=== PATIENT | female | born 1985 | race American Indian/Alaskan Native ===

== ENCOUNTER 2017-06-12 15:31 | Emergency (ER) | payer SELFPAY ==
--- NOTE | 2017-06-12 18:02 | Emergency Department Report ---
Chief Complaint: Dizziness Stated Complaint: DIZZY Time Seen by Provider: 06/12/17 17:58 - HPI History of Present Illness: PT c/o dizziness. + nausea PT states the symptoms worsened today, onset yesterday - ROS Review of Systems: + headache - feels like previous migraine + dizziness + nausea lmp - 05-08-17 - Exam Physical Exam: PT looks well, non toxic. GCS 15 steady gait in triage MSE screening note: Focused history and physical exam performed. Due to findings the following was ordered: labs ED Disposition for MSE Condition: Stable
[2017-06-12 18:51] LABS: Basophils % (Auto) 0.4 % (0.0-1.8); Hematocrit 39.6 % (30.3-42.9); Hemoglobin 13.1 gm/dl (10.1-14.3); Mean Corpuscular HGB Conc 33 % (30-34); Mean Corpuscular Volume 77 fl (79-97); Platelet Count 184 K/mm3 (140-440); Red Blood Count 5.12 M/mm3 (3.65-5.03); Red Cell Distribution Width 14.3 % (13.2-15.2); White Blood Count 6.8 K/mm3 (4.5-11.0)
[2017-06-12 18:56] LABS: Mean Corpuscular Hemoglobin 26 pg (28-32)
[2017-06-12 19:09] LABS: Alanine Aminotransferase 16 units/L (7-56); Albumin/Globulin Ratio 1.5 %; Alkaline Phosphatase 56 units/L (35-129); Anion Gap 17 mmol/L; Blood Urea Nitrogen 9 mg/dL (7-17); Calcium 9.8 mg/dL (8.4-10.2); Carbon Dioxide 29 mmol/L (22-30); Chloride 98.9 mmol/L (98-107); Glucose 94 mg/dL (65-100); Potassium 3.4 mmol/L (3.6-5.0); Sodium 141 mmol/L (137-145); Total Protein 8.3 g/dL (6.3-8.2)
[2017-06-12] MEDS ORDERED: NACL 0.9% 1000 ML 1,000 ML IV ONE (21:05)
[2017-06-12] MEDS ORDERED: REGLAN IV ONE (21:05)
[2017-06-12 21:06] VITALS: BP 151/94
[2017-06-12] MEDS ORDERED: BENADRYL IV PRN (21:06)
[2017-06-12 21:55] LABS: Bilirubin,Urine NEG (Negative); Blood,Urine NEG (Negative); Ketones,Urine NEG (Negative); Leukocyte Esterase,Urine NEG (Negative); Nitrite,Urine NEG (Negative); Protein,Urine <15 mg/dL mg/dL (Negative); Urobilinogen,Urine < 2.0 mg/dL (<2.0); WBC,Urine < 1.0 /HPF (0.0-6.0)
--- NOTE | 2017-06-13 00:33 | Emergency Department Report ---
- General Chief complaint: Dizziness Stated complaint: DIZZY Time Seen by Provider: 06/12/17 17:58 Source: patient Mode of arrival: Ambulatory Limitations: No Limitations - History of Present Illness Initial comments: It is a 31-year-old female past medical history who presents with headache and feelings of lightheadedness. She states that symptoms have been going on for last 2 weeks. She states that she's been working a lot and she has not been getting enough water. She states that she's had headaches like these before in the past. The headache is not sudden in onset is gradual. It is located in the temporal region is a 7 out of 10 but doesn't radiate it is a sharp type of pain it is constant and nothing makes the pain better or worse. She states that she usually goes to the ER to get IV fluids for this type of headache. Patient also states that she gets lightheaded when she gets headaches like these. Severity scale (0 -10): 10 - Related Data Allergies Allergy/AdvReac Type Severity Reaction Status Date / Time No Known Allergies Allergy Verified 06/12/17 18:04 ED Review of Systems ROS: Stated complaint: DIZZY Other details as noted in HPI Constitutional: weakness. denies: chills, fever Eyes: denies: eye pain, eye discharge, vision change ENT: denies: ear pain, throat pain Respiratory: denies: cough, shortness of breath, wheezing Cardiovascular: denies: chest pain, palpitations Endocrine: no symptoms reported Gastrointestinal: denies: abdominal pain, nausea, diarrhea Genitourinary: denies: urgency, dysuria, discharge Musculoskeletal: denies: back pain, joint swelling, arthralgia Skin: denies: rash, lesions Neurological: headache, weakness Psychiatric: denies: anxiety, depression Hematological/Lymphatic: denies: easy bleeding, easy bruising ED Past Medical Hx - Past Medical History Previous Medical History?: Yes Hx Headaches / Migraines: Yes - Surgical History Past Surgical History?: No - Social History Smoking Status: Never Smoker Substance Use Type: None ED Physical Exam - General Limitations: No Limitations General appearance: alert, in no apparent distress - Head Head exam: Present: atraumatic, normocephalic - Eye Eye exam: Present: normal appearance - ENT ENT exam: Present: mucous membranes dry - Neck Neck exam: Present: normal inspection - Respiratory Respiratory exam: Present: normal lung sounds bilaterally. Absent: respiratory distress - Cardiovascular Cardiovascular Exam: Present: regular rate, normal rhythm. Absent: systolic murmur, diastolic murmur, rubs, gallop - GI/Abdominal GI/Abdominal exam: Present: soft, normal bowel sounds - Extremities Exam Extremities exam: Present: normal inspection - Back Exam Back exam: Present: normal inspection - Neurological Exam Neurological exam: Present: alert, oriented X3 - Psychiatric Psychiatric exam: Present: normal affect, normal mood - Skin Skin exam: Present: warm, dry, intact, normal color. Absent: rash ED Course Vital Signs 06/12/17 06/12/17 17:59 20:30 Temperature 98.5 F Pulse Rate 62 57 L Respiratory 16 18 Rate Blood Pressure 143/95 Blood Pressure 151/94 [Left] O2 Sat by Pulse 100 99 Oximetry - Reevaluation(s) Reevaluation #1: 06/12/17 22:37 Patient is feeling better she states her headache is gone and she feels a lot better. We'll send patient home she agrees with plan. ED Medical Decision Making - Lab Data Result diagrams: 06/12/17 18:27 06/12/17 18:27 Laboratory Results - last 24 hr 06/12/17 06/12/17 06/12/17 18:27 18:27 18:27 WBC 6.8 RBC 5.12 H Hgb 13.1 Hct 39.6 MCV 77 L MCH 26 L MCHC 33 RDW 14.3 Plt Count 184 Lymph % (Auto) 34.3 [place] % (Auto) 4.8 Eos % (Auto) 2.0 Baso % (Auto) 0.4 Lymph # 2.3 [place] # 0.3 Eos # 0.1 Baso # 0.0 Seg Neutrophils % 58.5 Seg Neutrophils # 4.0 Sodium 141 Potassium 3.4 L Chloride 98.9 Carbon Dioxide 29 Anion Gap 17 BUN 9 Creatinine 0.5 L Estimated GFR > 60 BUN/Creatinine Ratio 18.00 Glucose 94 Calcium 9.8 Total Bilirubin 1.60 H AST 15 ALT 16 Alkaline Phosphatase 56 Total Protein 8.3 H Albumin 5.0 Albumin/Globulin Ratio 1.5 HCG, Qual Negative Urine Color Urine Turbidity Urine pH Ur Specific [place] Urine Protein Urine Glucose (UA) Urine Ketones Urine Blood Urine Nitrite Urine Bilirubin Urine Urobilinogen Ur Leukocyte Esterase Urine WBC (Auto) Urine RBC (Auto) U Epithel Cells (Auto) 06/12/17 21:07 WBC RBC Hgb Hct MCV MCH MCHC RDW Plt Count Lymph % (Auto) [place] % (Auto) Eos % (Auto) Baso % (Auto) Lymph # [place] # Eos # Baso # Seg Neutrophils % Seg Neutrophils # Sodium Potassium Chloride Carbon Dioxide Anion Gap BUN Creatinine Estimated GFR BUN/Creatinine Ratio Glucose Calcium Total Bilirubin AST ALT Alkaline Phosphatase Total Protein Albumin Albumin/Globulin Ratio HCG, Qual Urine Color Straw Urine Turbidity Clear Urine pH 8.0 H Ur Specific [place] 1.012 Urine Protein <15 mg/dl Urine Glucose (UA) Neg Urine Ketones Neg Urine Blood Neg Urine Nitrite Neg Urine Bilirubin Neg Urine Urobilinogen < 2.0 Ur Leukocyte Esterase Neg Urine WBC (Auto) < 1.0 Urine RBC (Auto) 2.0 U Epithel Cells (Auto) 1.0 - Medical Decision Making Medical diagnosis: Tension headache Differential medical diagnosis: Urinary tract infection, , dehydration , hypokalemia, migraine headache Due to patient with clinical signs and symptoms and the fact that she's had headaches like this before in the past. Patient does not need CT imaging of her head. His laboratory findings and urinalysis show no metabolic abnormality nor infection. She has no neurological deficits. Discussed risk for radiation and both me and the patient have made shared decision making that she does not need a CT of her head. Will treat patient with IV Reglan and IV Benadryl due to patient's headache not improving with [id number] medications. Also due to patient being dehydrated we'll give patient IV hydration. Critical Care Time: No Critical care attestation.: If time is entered above; I have spent that time in minutes in the direct care of this critically ill patient, excluding procedure time. ED Disposition Clinical Impression: Dehydration, Tension headache Disposition: DC-01 TO HOME OR SELFCARE Is pt being admited?: No Does the pt Need Aspirin: No Condition: Stable Instructions: Dehydration (ED), Tension Headache (ED) Referrals: PRIMARY CARE, [Primary Care Provider] - 3-5 Days Time of Disposition: 00:34
== END 2017-06-13 00:56 | disposition home or self-care (01) ==
LOC: ED 15:31
DX: E86.0 Dehydration (principal); G44.209 Tension-type headache, unspecified, not intractable; G43.909 Migraine, unspecified, not intractable, without status migrainosus
CPT/HCPCS: 36415; 80053; 81001; 84703; 85025; 96361; 96374; 96375; 99283; J1200; J2765; J7030

== ENCOUNTER 2017-08-18 23:40 | Emergency (ER) | payer OTHER ==
[2017-08-19 01:38] LABS: Alanine Aminotransferase 10 units/L (7-56); Albumin 4.9 g/dL (3.9-5); Albumin/Globulin Ratio 1.5 %; Alkaline Phosphatase 60 units/L (35-129); Anion Gap 17 mmol/L; BUN/Creatinine Ratio 23; Blood Urea Nitrogen 14 mg/dL (7-17); Calcium 9.6 mg/dL (8.4-10.2); Carbon Dioxide 26 mmol/L (22-30); Chloride 103.9 mmol/L (98-107); Glucose 75 mg/dL (65-100); Lipase 21 units/L (13-60); Potassium 3.6 mmol/L (3.6-5.0); Sodium 143 mmol/L (137-145); Total Protein 8.2 g/dL (6.3-8.2)
[2017-08-19 01:40] LABS: Basophils % (Auto) 0.4 % (0.0-1.8); Eosinophils % (Auto) 0.9 % (0.0-4.3); Hematocrit 38.5 % (30.3-42.9); Hemoglobin 13.1 gm/dl (10.1-14.3); Mean Corpuscular HGB Conc 34 % (30-34); Mean Corpuscular Hemoglobin 26 pg (28-32); Mean Corpuscular Volume 76 fl (79-97); Platelet Count 173 K/mm3 (140-440); Red Blood Count 5.04 M/mm3 (3.65-5.03)
[2017-08-19] MEDS ORDERED: ZOFRAN ODT PO ONE (08:24)
[2017-08-19 09:00] VITALS: BP 124/74
[2017-08-19 09:05] LABS: Bacteria,Urine 1+ /HPF (Negative); Bilirubin,Urine NEG (Negative); Blood,Urine NEG (Negative); Ketones,Urine 80 mg/dL (Negative); Leukocyte Esterase,Urine NEG (Negative); Mucus,Urine 1+ /HPF; Nitrite,Urine NEG (Negative); Protein,Urine <15 mg/dL mg/dL (Negative); Urobilinogen,Urine < 2.0 mg/dL (<2.0)
--- NOTE | 2017-08-19 10:22 | Emergency Department Report ---
ED Abdominal Pain HPI - General Chief Complaint: Abdominal Pain Stated Complaint: ABD PAIN Time Seen by Provider: 08/19/17 08:23 Source: patient Mode of arrival: Ambulatory Limitations: No Limitations - History of Present Illness MD Complaint: abdominal pain Location: diffuse Radiation: none Migration to: no migration Severity: moderate Quality: sharp Consistency: intermittent Improves With: nothing Worsens With: nothing Context: sick contacts (here w 4 fam members) Associated Symptoms: nausea, vomiting, diarrhea. denies: fever, chills, constipation, dysuria, hematemesis, hematochezia, melena, hematuria, anorexia, syncope - Related Data Previous Rx's Medication Instructions Recorded Last Taken Type Ondansetron [Zofran TAB] 4 mg PO Q8HR PRN #10 tablet 08/19/17 Unknown Rx Allergies Allergy/AdvReac Type Severity Reaction Status Date / Time No Known Allergies Allergy Verified 06/12/17 18:04 ED Review of Systems ROS: Stated complaint: ABD PAIN Other details as noted in HPI Comment: All other systems reviewed and negative Constitutional: no symptoms reported, see HPI. denies: chills, diaphoresis, fever, malaise Eyes: as per HPI. denies: eye pain ENT: as per HPI. denies: ear pain, throat pain Respiratory: no symptoms reported, see HPI, cough. denies: orthopnea Cardiovascular: as per HPI. denies: chest pain, palpitations, dyspnea on exertion, orthopnea Endocrine: no symptoms reported, see HPI. denies: excessive sweating, flushing , intolerance to cold, intolerance to heat Gastrointestinal: as per HPI, abdominal pain, nausea, vomiting, diarrhea. denies: constipation, hematemesis, melena, hematochezia Genitourinary: as per HPI. denies: urgency, dysuria, frequency, hematuria, discharge, abnormal menses, dyspareunia Musculoskeletal: as per HPI. denies: back pain Skin: as per HPI. denies: rash, lesions Neurological: as per HPI. denies: headache, weakness Psychiatric: as per HPI. denies: anxiety, depression Hematological/Lymphatic: as per HPI. denies: easy bleeding ED Past Medical Hx - Past Medical History Previous Medical History?: Yes Hx Headaches / Migraines: Yes - Surgical History Past Surgical History?: No - Social History Smoking Status: Never Smoker Substance Use Type: None - Medications Home Medications: Home Medications Medication Instructions Recorded Confirmed Last Taken Type Ondansetron [Zofran TAB] 4 mg PO Q8HR PRN #10 tablet 08/19/17 Unknown Rx ED Physical Exam - General Limitations: No Limitations General appearance: alert, in no apparent distress - Head Head exam: Present: atraumatic - Eye Eye exam: Present: normal appearance. Absent: PERRL, EOMI Pupils: Present: normal accommodation. Absent: irregular - ENT ENT exam: Present: normal exam, normal orophraynx, mucous membranes moist - Neck Neck exam: Present: normal inspection. Absent: tenderness - Respiratory Respiratory exam: Present: normal lung sounds bilaterally - Cardiovascular Cardiovascular Exam: Present: regular rate - GI/Abdominal GI/Abdominal exam: Present: soft, normal bowel sounds. Absent: distended, tenderness, guarding, rebound, rigid, diminished bowel sounds, hyperactive bowel sounds, hypoactive bowel sounds, organomegaly, mass, bruit, pulsatile mass , hernia - Rectal Rectal exam: Present: deferred - Extremities Exam Extremities exam: Present: normal inspection, full ROM. Absent: tenderness - Back Exam Back exam: Present: normal inspection, full ROM. Absent: tenderness, CVA tenderness (R), CVA tenderness (L), muscle spasm, paraspinal tenderness, vertebral tenderness - Neurological Exam Neurological exam: Present: alert, oriented X3, CN II-XII intact, normal gait - Psychiatric Psychiatric exam: Present: normal affect, normal mood - Skin Skin exam: Present: warm, dry, intact ED Course Vital Signs 08/19/17 08/19/17 00:49 08:59 Temperature 98.4 F Pulse Rate 81 65 Respiratory 20 18 Rate Blood Pressure 164/95 Blood Pressure 124/74 [Right] O2 Sat by Pulse 98 100 Oximetry - Reevaluation(s) Reevaluation #1: 08/19/17 10:55 to er today w her and 3 kids all w illness mom co abd pain n/v/d but none here while in er taking po ambulating well tending to kids vss no tachy no fever non ill appearing abd exam wnl. no tenderness on exam she states it just hurts lying in stretcher w laughing discussed u/a and her bili given po fluids will fu if not better monday ED Medical Decision Making - Lab Data Result diagrams: 08/19/17 01:01 08/19/17 01:01 Critical care attestation.: If time is entered above; I have spent that time in minutes in the direct care of this critically ill patient, excluding procedure time. ED Disposition Clinical Impression: Gastroenteritis Disposition: TO HOME OR SELFCARE Is pt being admited?: No Does the pt Need Aspirin: No Condition: Stable Instructions: Gastroenteritis (ED), Abdominal Pain (ED) Additional Instructions: rest hydrate well fluids fluids fluids no alcohol or spicy food med as ordered if you are not feeling better Monday see PCP have him recheck your lab work then Prescriptions: Ondansetron [Zofran TAB] 4 mg PO Q8HR PRN #10 tablet PRN Reason: Vomiting Referrals: PRIMARY CARE, [Primary Care Provider] - 3-5 Days WILLI ROSEN MD [Staff Physician] - 3-5 Days Time of Disposition: 10:54
== END 2017-08-19 12:23 | disposition home or self-care (01) ==
LOC: ED 23:40
DX: K52.9 Noninfective gastroenteritis and colitis, unspecified (principal); G43.909 Migraine, unspecified, not intractable, without status migrainosus
CPT/HCPCS: 36415; 80053; 81001; 83690; 84703; 85025; 99283; Q0162

== ENCOUNTER 2017-12-24 05:09 | Emergency (ER) | payer OTHER ==
[2017-12-24 07:08] LABS: Basophils % (Auto) 0.4 % (0.0-1.8); Eosinophils # (Auto) 0.2 K/mm3 (0.0-0.4); Eosinophils % (Auto) 2.4 % (0.0-4.3); Hematocrit 36.9 % (30.3-42.9); Hemoglobin 12.1 gm/dl (10.1-14.3); Lymphocytes # (Auto) 2.3 K/mm3 (1.2-5.4); Lymphocytes % (Auto) 35.8 % (13.4-35.0); Mean Corpuscular HGB Conc 33 % (30-34); Mean Corpuscular Volume 77 fl (79-97); Monocytes # (Auto) 0.5 K/mm3 (0.0-0.8); Monocytes % (Auto) 7.5 % (0.0-7.3); Platelet Count 221 K/mm3 (140-440); Red Blood Count 4.78 M/mm3 (3.65-5.03); Red Cell Distribution Width 13.4 % (13.2-15.2)
[2017-12-24 07:09] LABS: Mean Corpuscular Hemoglobin 25 pg (28-32)
[2017-12-24 07:27] LABS: Alanine Aminotransferase 10 units/L (7-56); Albumin 4.2 g/dL (3.9-5); BUN/Creatinine Ratio 15; Blood Urea Nitrogen 9 mg/dL (7-17); Calcium 9.1 mg/dL (8.4-10.2); Hemolysis Index 3
--- NOTE | 2017-12-24 11:32 | Emergency Department Report ---
Pediatric NVD - HPI Chief Complaint: Nausea/Vomiting/Diarrhea Stated Complaint: NAUSEA, VOMITING, DIARRHEA Time Seen by Provider: 12/24/17 09:56 ED Review of Systems ROS: Stated complaint: NAUSEA, VOMITING, DIARRHEA Other details as noted in HPI Pediatric N/V/D - Exam General: Vital signs noted. No distress. Alert and acting appropriately. Neurologic: Musculoskeletal: ED Course Vital Signs 12/24/17 05:30 Temperature 97.9 F Pulse Rate 64 Respiratory 20 Rate Blood Pressure 127/71 O2 Sat by Pulse 98 Oximetry ED Medical Decision Making - Lab Data Result diagrams: 12/24/17 06:04 12/24/17 06:04 - Medical Decision Making A/P: Food poisoning, viral gastroenteritis 1-patient tolerating by mouth fluid and food without difficulty, vital signs stable, afebrile 2-Zofran when necessary, Pepto-Bismol when necessary 3-all primary care doctor 4- Critical care attestation.: If time is entered above; I have spent that time in minutes in the direct care of this critically ill patient, excluding procedure time. ED Disposition Condition: Stable Referrals: PRIMARY CARE, [Primary Care Provider] - 3-5 Days
--- NOTE | 2017-12-24 11:49 | Emergency Department Report ---
Vomiting/Diarrhea - [facility] Chief Complaint: Nausea/Vomiting/Diarrhea Stated Complaint: NAUSEA, VOMITING, DIARRHEA Time Seen by Provider: 12/24/17 09:56 Duration: 2 Days Severity: mild Symptoms: Yes Watery Diarrhea, Yes Able to Tolerate Fluids, Yes Recent Unusual Foods, Yes Family w/ Similar Symptoms, Yes Contacts w/ Similar Symptoms, No Bloody diarrhea, No Fever, No Recent Untreated Water, No Recent use of Antibiotics, No Rash, No Hematuria, No Recent URI Symptoms ED Review of Systems ROS: Stated complaint: NAUSEA, VOMITING, DIARRHEA Other details as noted in HPI Constitutional: denies: chills, fever Eyes: denies: eye pain, eye discharge, vision change ENT: denies: ear pain, throat pain Respiratory: denies: cough, shortness of breath, wheezing Cardiovascular: denies: chest pain, palpitations Endocrine: no symptoms reported Gastrointestinal: vomiting, diarrhea. denies: nausea Genitourinary: denies: urgency, dysuria, discharge Musculoskeletal: denies: back pain, joint swelling, arthralgia Skin: denies: rash, lesions Neurological: denies: headache, weakness, paresthesias Psychiatric: denies: anxiety, depression Hematological/Lymphatic: denies: easy bleeding, easy bruising ED Past Medical Hx - Past Medical History Previous Medical History?: No Hx Headaches / Migraines: Yes - Social History Smoking Status: Never Smoker - Medications Home Medications: Home Medications Medication Instructions Recorded Confirmed Last Taken Type Ondansetron [Zofran TAB] 4 mg PO Q8HR PRN #10 tablet 08/19/17 Unknown Rx Bismuth Subsalicylate 10 ml PO QID PRN #1 bottle 12/24/17 Unknown Rx [Pepto-Bismol] Famotidine [Pepcid] 20 mg PO BID PRN #30 tablet 12/24/17 Unknown Rx Ondansetron [Zofran Odt] 4 mg PO Q8H PRN #10 tab.rapdis 12/24/17 Unknown Rx Vomiting Diarrhea Exam - Exam General: Vital signs noted. No distress. Alert and acting appropriately. HEENT: Yes Moist Mucous Membranes, No Pharyngeal Erythema, No Pharyngeal Exudates, No Rhinorrhea, No Conjuctival Injection, No Frontal Tenderness, No Maxillary Tenderness Neck: No Adenopathy, No Rigidity Lungs: Yes Clear Lung Sounds (lungs clear to auscultation), Yes Good Air Exchange, No Wheezes, No Stridor, No Cough, No Nasal Flaring, No Retractions, No Use of Accessory Muscles Heart exam: Regular: Yes, Murmur: No, Tachycardia: No Abdomen: Tenderness: No (abdomen soft and nontender), Peritoneal Signs: No, Distention: No, Hyperactive Bowel sounds: No Skin exam: Rash: No, Edema: No, Normal turgor: Yes Neurologic: Alert and oriented, no deficits. Musculoskeletal: Unremarkable. ED Course Vital Signs 12/24/17 05:30 Temperature 97.9 F Pulse Rate 64 Respiratory 20 Rate Blood Pressure 127/71 O2 Sat by Pulse 98 Oximetry ED Medical Decision Making - Lab Data Result diagrams: 12/24/17 06:04 12/24/17 06:04 - Medical Decision Making A/P: Gastroenteritis 1-patient tolerating by mouth fluid and food, labs unremarkable, vital signs stable 2-Zofran, Pepto-Bismol when necessary 3-follow-up with primary care Critical care attestation.: If time is entered above; I have spent that time in minutes in the direct care of this critically ill patient, excluding procedure time. ED Disposition Clinical Impression: Gastroenteritis Food poisoning Qualifiers: Encounter type: initial encounter Injury intent: undetermined intent Qualified Code(s): T62.94XA - Toxic effect of unspecified noxious substance eaten as food , undetermined, initial encounter Disposition: - TO HOME OR SELFCARE Is pt being admited?: No Does the pt Need Aspirin: No Condition: Stable Instructions: Gastroenteritis (ED), Food Poisoning (ED) Prescriptions: Bismuth Subsalicylate [Pepto-Bismol] 10 ml PO QID PRN #1 bottle PRN Reason: Indigestion Famotidine [Pepcid] 20 mg PO BID PRN #30 tablet PRN Reason: Indigestion Ondansetron [Zofran Odt] 4 mg PO Q8H PRN #10 tab.rapdis PRN Reason: Nausea Referrals: [facility] [Outside] - 3-5 Days [facility] [Outside] - 3-5 Days Forms: Work/School Release Form(ED) Time of Disposition: 11:46
[2017-12-24 12:35] VITALS: BP 118/72
== END 2017-12-24 12:57 | disposition home or self-care (01) ==
LOC: ED 05:09
DX: K52.9 Noninfective gastroenteritis and colitis, unspecified (principal); T62.91XA Toxic effect of unspecified noxious substance eaten as food, accidental (unintentional), initial encounter; G43.909 Migraine, unspecified, not intractable, without status migrainosus; Y92.89 Other specified places as the place of occurrence of the external cause
CPT/HCPCS: 36415; 80053; 84703; 85025; 99283

== ENCOUNTER 2018-07-05 09:21 | Emergency (ER) | payer OTHER ==
[2018-07-05 10:09] VITALS: BP 132/69
[2018-07-05 10:32] LABS: HCG Qualitative,Urine Negative (Negative)
[2018-07-05 10:40] LABS: Bilirubin,Urine NEG (Negative); Blood,Urine NEG (Negative); Color,Urine Yellow (Yellow)
[2018-07-05] MEDS ORDERED: TORADOL IV ONE (11:10)
[2018-07-05] MEDS ORDERED: BENADRYL IV ONE (11:10)
[2018-07-05] MEDS ORDERED: NACL 0.9% 1000 ML 1,000 ML IV ONE (11:10)
[2018-07-05] MEDS ORDERED: REGLAN PO ONE (11:10)
[2018-07-05 11:47] LABS: Basophils % (Auto) 0.4 % (0.0-1.8); Eosinophils # (Auto) 0.1 K/mm3 (0.0-0.4); Eosinophils % (Auto) 1.3 % (0.0-4.3); Hematocrit 39.2 % (30.3-42.9); Hemoglobin 13.1 gm/dl (10.1-14.3); Lymphocytes # (Auto) 1.9 K/mm3 (1.2-5.4); Lymphocytes % (Auto) 27.8 % (13.4-35.0); Mean Corpuscular HGB Conc 33 % (30-34); Mean Corpuscular Hemoglobin 26 pg (28-32); Mean Corpuscular Volume 78 fl (79-97); Monocytes # (Auto) 0.4 K/mm3 (0.0-0.8); Monocytes % (Auto) 5.3 % (0.0-7.3); Platelet Count 182 K/mm3 (140-440); Red Blood Count 5.02 M/mm3 (3.65-5.03); Red Cell Distribution Width 14.5 % (13.2-15.2)
[2018-07-05 12:06] LABS: Alanine Aminotransferase 7 units/L (7-56); Albumin 4.7 g/dL (3.9-5); BUN/Creatinine Ratio 22; Bilirubin,Direct < 0.2 mg/dL (0-0.2); Blood Urea Nitrogen 13 mg/dL (7-17); Calcium 9.7 mg/dL (8.4-10.2); Hemolysis Index 7; Lipase 29 units/L (13-60)
--- NOTE | 2018-07-05 12:28 | Emergency Department Report ---
ED Female HPI - General Chief complaint: Abdominal Pain Stated complaint: N&V Time Seen by Provider: 07/05/18 10:53 Source: patient Mode of arrival: Ambulatory Limitations: No Limitations - History of Present Illness Initial comments: This is a 32-year-old female nontoxic, well nourished in appearance, no acute signs of distress presents to the ED with c/o of pelvic pain, vaginal discharge , and intermittent headaches 2 days. Patient denies any nausea or vomiting. Patient describes pelvic pain as cramping and aching with level of 3/10 diffuse. Patient describes headache as diffuse with level of 3 out of 10. Patient denies thunderclap headache. Patient denies any radiation of pain. Patient denies any head trauma. Patient denies any visual changes. Patient denies worse headache. Patient stated that darkness makes headache better and bright lights make the headache worse. Patient denies chest pain, short of breath, fever, chills, stiff neck, numbness or tingling. Patient denies any diarrhea or constipation. Patient denies any vaginal bleeding. Patient denies any recent travels. Patient denies any allergies or PMH. Patient stated she is not concerned about STD but wants to be tested. MD Complaint: vaginal discharge, pelvic pain, other (headache) -: days(s) (2) Radiation: non-radiating Severity: mild Severity scale (0 -10): 3 Quality: cramping, aching Consistency: intermittent Improves with: none Worsens with: none Are you Now?: No Associated Symptoms: vaginal discharge, headaches. denies: vaginal bleeding, abdominal pain, nausea/vomiting, fever/chills, loss of appetite, hematuria, rash , seizure, shortness of breath, syncope, weakness - Related Data Previous Rx's Medication Instructions Recorded Last Taken Type Ondansetron [Zofran TAB] 4 mg PO Q8HR PRN #10 tablet 08/19/17 Unknown Rx Bismuth Subsalicylate 10 ml PO QID PRN #1 bottle 12/24/17 Unknown Rx [Pepto-Bismol] Famotidine [Pepcid] 20 mg PO BID PRN #30 tablet 12/24/17 Unknown Rx Ondansetron [Zofran Odt] 4 mg PO Q8H PRN #10 tab.rapdis 12/24/17 Unknown Rx Doxycycline [Vibramycin CAP] 100 mg PO Q12HR #14 capsule 07/05/18 Unknown Rx Fluconazole [Diflucan] 150 mg PO ONCE #1 tablet 07/05/18 Unknown Rx metroNIDAZOLE [Flagyl] 500 mg PO Q12HR #14 tab 07/05/18 Unknown Rx Allergies Allergy/AdvReac Type Severity Reaction Status Date / Time No Known Allergies Allergy Verified 06/12/17 18:04 ED Review of Systems ROS: Stated complaint: N&V Other details as noted in HPI Constitutional: denies: chills, fever Eyes: denies: eye pain, eye discharge, vision change ENT: denies: ear pain, throat pain Respiratory: denies: cough, shortness of breath, wheezing Cardiovascular: denies: chest pain, palpitations Endocrine: no symptoms reported Gastrointestinal: abdominal pain (pelvic pain). denies: nausea, vomiting, diarrhea Genitourinary: discharge. denies: urgency, dysuria, frequency Musculoskeletal: denies: back pain, joint swelling, arthralgia Skin: denies: rash, lesions Neurological: headache. denies: weakness, paresthesias Psychiatric: denies: anxiety, depression Hematological/Lymphatic: denies: easy bleeding, easy bruising ED Past Medical Hx - Past Medical History Previous Medical History?: Yes Hx Headaches / Migraines: Yes - Surgical History Past Surgical History?: Yes Additional Surgical History: x 3 - Social History Smoking Status: Never Smoker Substance Use Type: None - Medications Home Medications: Home Medications Medication Instructions Recorded Confirmed Last Taken Type Ondansetron [Zofran TAB] 4 mg PO Q8HR PRN #10 tablet 08/19/17 Unknown Rx Bismuth Subsalicylate 10 ml PO QID PRN #1 bottle 12/24/17 Unknown Rx [Pepto-Bismol] Famotidine [Pepcid] 20 mg PO BID PRN #30 tablet 12/24/17 Unknown Rx Ondansetron [Zofran Odt] 4 mg PO Q8H PRN #10 tab.rapdis 12/24/17 Unknown Rx Doxycycline [Vibramycin CAP] 100 mg PO Q12HR #14 capsule 07/05/18 Unknown Rx Fluconazole [Diflucan] 150 mg PO ONCE #1 tablet 07/05/18 Unknown Rx metroNIDAZOLE [Flagyl] 500 mg PO Q12HR #14 tab 07/05/18 Unknown Rx ED Physical Exam - General Limitations: No Limitations General appearance: alert, in no apparent distress - Head Head exam: Present: atraumatic, normocephalic - Eye Eye exam: Present: normal appearance, PERRL, EOMI Pupils: Present: normal accommodation - ENT ENT exam: Present: normal exam, mucous membranes moist - Neck Neck exam: Present: normal inspection, full ROM. Absent: tenderness, meningismus, lymphadenopathy - Respiratory Respiratory exam: Present: normal lung sounds bilaterally. Absent: respiratory distress, wheezes, rales, rhonchi, stridor, chest wall tenderness, accessory muscle use, decreased breath sounds, prolonged expiratory - Cardiovascular Cardiovascular Exam: Present: regular rate, normal rhythm, normal heart sounds. Absent: bradycardia, tachycardia, irregular rhythm, systolic murmur, diastolic murmur, rubs, gallop - GI/Abdominal GI/Abdominal exam: Present: soft, normal bowel sounds. Absent: distended, tenderness, guarding, rebound, rigid, diminished bowel sounds, hyperactive bowel sounds, hypoactive bowel sounds, mass, bruit, pulsatile mass, hernia - Expanded GI/Abdominal Exam Expanded GI/Abdominal exam: Absent: psoas sign, obturator sign, heel tap sign, Downing's sign, Rovsing's sign, tenderness at Mcburney's Point, ascites - Rectal Rectal exam: Present: deferred - External exam: Present: normal external exam, other (roll cutter Barbara rehab therapist present during exam). Absent: erythema, lesions, lacerations, ecchymosis, bleeding Speculum exam: Present: normal speculum exam, cervical discharge (white with no foul odor), other (roll cutter Barbara rehab therapist present during exam). Absent: erythema, vaginal discharge, vaginal bleeding, foreign body, tissue, laceration Bi-manual exam: Present: normal bi-manual exam, other (roll cutter Barbara rehab therapist present during exam). Absent: cervical motion tendernes, adnexal tenderness, adnexal mass, uterine enlargement, uterine tenderness - Extremities Exam Extremities exam: Present: normal inspection, full ROM, normal capillary refill. Absent: tenderness, pedal edema, joint swelling, calf tenderness - Back Exam Back exam: Present: normal inspection, full ROM. Absent: tenderness, CVA tenderness (R), CVA tenderness (L), muscle spasm, paraspinal tenderness, vertebral tenderness, rash noted - Neurological Exam Neurological exam: Present: alert, oriented X3, CN II-XII intact, normal gait - Expanded Neurological Exam Expanded Patient oriented to: Present: person, place, time Cranial nerves: EOM's Intact: Normal, Gag Reflex: Normal, Facial Sensation: Normal Cerebellar function: Finger to Nose: Normal Upper motor neuron: Pronator Drift: Normal, Sensory Extinction: Normal Sensory exam: Upper Extremity Light Touch: Normal, Upper Extremity Pin Prick: Normal, Upper Extremity Temperature: Normal, UE 2 Point Discrimination: Normal, Lower Extremity Light Touch: Normal, Lower Extremity Pin Prick: Normal, Lower Extremity Temperature: Normal, LE 2 Point Discrimination: Normal Motor strength exam: RUE: 5, LUE: 5, RLE: 5, LLE: 5 Best Eye Response (Shailesh): (4) open spontaneously Best Motor Response (Maupin): (6) obeys commands Best Verbal Response (Maupin): (5) oriented Maupin Total: 15 - Psychiatric Psychiatric exam: Present: normal affect, normal mood - Skin Skin exam: Present: warm, dry, intact, normal color. Absent: rash ED Course Vital Signs 07/05/18 07/05/18 07/05/18 10:06 11:34 11:37 Temperature 98.6 F Pulse Rate 66 Respiratory 14 18 18 Rate Blood Pressure 132/69 O2 Sat by Pulse 100 98 Oximetry 07/05/18 12:07 Temperature Pulse Rate Respiratory 18 Rate Blood Pressure O2 Sat by Pulse Oximetry - Reevaluation(s) Reevaluation #1: 07/05/18 12:30 Patient is speaking in full sentences with no signs of distress noted. - Consultations Consultation #1: 07/05/18 13:20 Dr. Eli ([facility]) was consulted about patient history, physical exam, and labs/US report and stated patient can follow-up as outpatient and to provide antibiotics at discharge. ED Medical Decision Making - Lab Data Result diagrams: 07/05/18 11:36 07/05/18 11:36 - Medical Decision Making This is a 32-year-old female that presents with pelvic pain, headache, IUD displaced, Trichomonas, yeast infection and BV. Patient is stable and was examined by me. There is no upper abdominal tenderness. Negative signs of symptoms of appendicitis. Labs obtained. UA obtained. US/CT with contrast of pelvic obtained and dictated by the radiologist. Patient is notified of the report with no questions noted by the patient. Patient was consulted with Dr. Eli from [facility] and stated to give antibiotics and follow-up. Vital signs are stable prior to discharge. Patient receded 1L normal saline, Toradol, Benadyl, and Reglan and stated headache has subsided and resovled. Patient is neurological stable. Patient also received Rocephine and Azithroymin in the ED. A by mouth challenge has been obtained and patient tolerated well with no nausea vomiting. Patient was instructed to return and symptoms 3 days for gonorrhea and chlamydia results. Patient was also instructed to Follow-up with a primary care doctor in 3-5 days or if symptoms worsen and continue return to emergency room as soon as possible. At time of discharge, the patient does not seem toxic or ill in appearance. No acute signs of distress noted. Patient agrees to discharge treatment plan of care. No further questions noted by the patient. Critical care attestation.: If time is entered above; I have spent that time in minutes in the direct care of this critically ill patient, excluding procedure time. ED Disposition Clinical Impression: Bacterial vaginosis, Trichomonas contact, Vaginal candidiasis, Pelvic pain IUD strings lost Qualifiers: Encounter type: initial encounter Qualified Code(s): T83.32XA - Displacement of intrauterine contraceptive device, initial encounter Disposition: DC-01 TO HOME OR SELFCARE Is pt being admited?: No Does the pt Need Aspirin: No Condition: Stable Instructions: Bacterial Vaginosis (ED), Metronidazole (By mouth), Trichomoniasis (ED), Vulvovaginal Candidiasis (ED) Additional Instructions: Follow-up with a ADHESIVE BANDAGE MACHINE OPERATOR doctor in 3-5 days or if symptoms worsen and continue return to emergency room as soon as possible. Do not consume any alcohol while taking antibiotics. Prescriptions: Doxycycline [Vibramycin CAP] 100 mg PO Q12HR #14 capsule Fluconazole [Diflucan] 150 mg PO ONCE #1 tablet metroNIDAZOLE [Flagyl] 500 mg PO Q12HR #14 tab Referrals: PRIMARY CARE, [Primary Care Provider] - 3-5 Days KETAN ELI MD [Staff Physician] - 3-5 Days [facility] [Outside] - 3-5 Days [facility] [Outside] - 3-5 Days [facility] [Provider Group] - 3-5 Days Forms: Work/School Release Form(ED)
--- NOTE | 2018-07-05 12:39 | Ultrasound Report ---
ULTRASOUND PELVIC COMPLETE ULTRASOUND TRANSVAGINAL HISTORY: Pelvic pain. COMPARISON: None. TECHNIQUE: Transabdominal and transvaginal ultrasound with color doppler interrogation. FINDINGS: Uterus: The uterus is anteverted. The uterus measures 9 x 5 x 4 cm. No uterine fibroid disease is identified. The images are slightly limited but there appears to be an intrauterine device which is not within the endometrial canal. The IUD appears to be within the myometrium of the right lateral and lower uterine wall. Consider further evaluation with CT. Endometrium: 5 mm. No obvious abnormality. Right ovary: Normal. Left ovary: Normal. No pelvic fluid or mass is identified. Normal color doppler interrogation. IMPRESSION: There appears to be an abnormal position of the intrauterine device as outlined above. Uterine perforation is difficult to exclude. See above.
--- NOTE | 2018-07-05 15:05 | Cat Scan Report ---
CT ABDOMEN PELVIS WITH CONTRAST: HISTORY: Pelvic pain. COMPARISON: Pelvic ultrasound performed same day. TECHNIQUE: Helical CT in 1.25mm intervals following IV contrast. Sagittal and coronal reconstructions. FINDINGS: Lung bases: Normal. Liver: Normal. Biliary system: Normal. Pancreas: Normal. Spleen: Normal. Kidneys/ureters/bladder: The right kidney is severely atrophic measuring only a few centimeters in length. The left kidney is normal. The collecting systems and bladder are unremarkable. Adrenal glands: Normal. Aorta: Normal. Intestines: Unremarkable given no oral contrast was administered. Appendix: Normal. Pelvic viscera: The uterus and adnexa are unremarkable. The intrauterine device appears to have an abnormal position on CT as well. One of the limits of the IUD appears to project into the lower right lateral wall of the uterus. Please correlate with the images. A moderate left ovarian vein varicosity is also noted. Ascites: None. Adenopathy: None. Musculoskeletal: Normal. IMPRESSION: Abnormal position of the IUD as described above. Please correlate with the images and the patient.
[2018-07-05] MEDS ORDERED: ZITHROMAX PO ONE (15:40)
[2018-07-05] MEDS ORDERED: ROCEPHIN/NS 1 GM/50 ML 1 GM/50 ML BAG IV ONE (15:40)
== END 2018-07-05 16:25 | disposition home or self-care (01) ==
LOC: ED 09:21
DX: T83.32XA Displacement of intrauterine contraceptive device, initial encounter (principal); N76.0 Acute vaginitis; A59.01 Trichomonal vulvovaginitis; B37.3 Candidiasis of vulva and vagina; G43.909 Migraine, unspecified, not intractable, without status migrainosus; Y83.8 Other surgical procedures as the cause of abnormal reaction of the patient, or of later complication, without mention of misadventure at the time of the procedure; Y92.89 Other specified places as the place of occurrence of the external cause
CPT/HCPCS: 36415; 74177; 76830; 76856; 80048; 80074; 81001; 81025; 83690; 85025; 87210; 87591; 96365; 96375; 99284; J0696; J1200; J1885; J7030; Q9967

== ENCOUNTER 2018-07-22 22:57 | Emergency (ER) | payer OTHER ==
[2018-07-22] MEDS ORDERED: TYLENOL PO ONE (23:45)
[2018-07-22] MEDS ORDERED: TYLENOL ONE (23:48)
[2018-07-22] MEDS ORDERED: NACL 0.9% 1000 ML 1,000 ML IV ONE (23:53)
[2018-07-23 00:11] LABS: Basophils % (Auto) 0.4 % (0.0-1.8); Eosinophils # (Auto) 0.1 K/mm3 (0.0-0.4); Eosinophils % (Auto) 2.1 % (0.0-4.3); Hemoglobin 12.8 gm/dl (10.1-14.3); Lymphocytes # (Auto) 2.8 K/mm3 (1.2-5.4); Lymphocytes % (Auto) 43.6 % (13.4-35.0); Mean Corpuscular HGB Conc 34 % (30-34); Mean Corpuscular Hemoglobin 27 pg (28-32); Mean Corpuscular Volume 78 fl (79-97); Monocytes # (Auto) 0.4 K/mm3 (0.0-0.8); Monocytes % (Auto) 5.5 % (0.0-7.3); Platelet Count 169 K/mm3 (140-440); Red Blood Count 4.84 M/mm3 (3.65-5.03); Red Cell Distribution Width 14.4 % (13.2-15.2)
[2018-07-23 00:29] LABS: Alanine Aminotransferase 10 units/L (7-56); Albumin 4.4 g/dL (3.9-5); BUN/Creatinine Ratio 15; Blood Urea Nitrogen 9 mg/dL (7-17); Calcium 9.5 mg/dL (8.4-10.2); Hemolysis Index 5
[2018-07-23 01:58] LABS: Color,Urine Straw (Yellow)
[2018-07-23 01:59] LABS: Bilirubin,Urine NEG (Negative); Blood,Urine NEG (Negative); Protein,Urine <15 mg/dL mg/dL (Negative); Urobilinogen,Urine < 2.0 mg/dL (<2.0)
--- NOTE | 2018-07-23 09:47 | Emergency Department Report ---
ED General Adult HPI - General Chief complaint: Abdominal Pain Stated complaint: ABDOMINAL PAIN,VAGINAL BLEEDING Time Seen by Provider: 07/23/18 09:37 Source: patient Mode of arrival: Ambulatory Limitations: No Limitations - History of Present Illness Initial comments: 32-year-old female with no past medical history presents with complaint of lower abdominal pain. Patient states he's had lower abdominal pain worsening since July 05. Patient states that she's also noticed intermittent vaginal bleeding. Patient states she's had vaginal bleeding that required 2 pads an hour change which is decreased to 1 an hour recently. Patient states the pain is 10 out of 10 and was not discharged with any type of pain medication. Patient is noted to have a malpositioned IUD and has followed up in OB clinic with Dr. Huber. The plan is for patient to have this surgically removed on July 31. Patient has had no fever. Severity scale (0 -10): 3 - Related Data Previous Rx's Medication Instructions Recorded Last Taken Type Ondansetron [Zofran TAB] 4 mg PO Q8HR PRN #10 tablet 08/19/17 Unknown Rx Bismuth Subsalicylate 10 ml PO QID PRN #1 bottle 12/24/17 Unknown Rx [Pepto-Bismol] Famotidine [Pepcid] 20 mg PO BID PRN #30 tablet 12/24/17 Unknown Rx Ondansetron [Zofran Odt] 4 mg PO Q8H PRN #10 tab.rapdis 12/24/17 Unknown Rx Doxycycline [Vibramycin CAP] 100 mg PO Q12HR #14 capsule 07/05/18 Unknown Rx Fluconazole [Diflucan] 150 mg PO ONCE #1 tablet 07/05/18 Unknown Rx metroNIDAZOLE [Flagyl] 500 mg PO Q12HR #14 tab 07/05/18 Unknown Rx traMADol [Ultram] 50 mg PO Q6HR PRN #20 tablet 07/23/18 Unknown Rx Allergies Allergy/AdvReac Type Severity Reaction Status Date / Time No Known Allergies Allergy Verified 06/12/17 18:04 ED Review of Systems ROS: Stated complaint: ABDOMINAL PAIN,VAGINAL BLEEDING Other details as noted in HPI Constitutional: denies: chills, fever Eyes: denies: eye pain, eye discharge, vision change ENT: denies: ear pain, throat pain Respiratory: denies: cough, shortness of breath, wheezing Cardiovascular: denies: chest pain, palpitations Endocrine: no symptoms reported Gastrointestinal: denies: abdominal pain, nausea, diarrhea Genitourinary: other (pelvic pain). denies: urgency, dysuria, discharge Musculoskeletal: denies: back pain, joint swelling, arthralgia Skin: denies: rash, lesions Neurological: denies: headache, weakness, paresthesias Psychiatric: denies: anxiety, depression Hematological/Lymphatic: denies: easy bleeding, easy bruising ED Past Medical Hx - Past Medical History Previous Medical History?: Yes Hx Headaches / Migraines: Yes - Surgical History Past Surgical History?: Yes Additional Surgical History: x 3 - Social History Smoking Status: Never Smoker Substance Use Type: None - Medications Home Medications: Home Medications Medication Instructions Recorded Confirmed Last Taken Type Ondansetron [Zofran TAB] 4 mg PO Q8HR PRN #10 tablet 08/19/17 Unknown Rx Bismuth Subsalicylate 10 ml PO QID PRN #1 bottle 12/24/17 Unknown Rx [Pepto-Bismol] Famotidine [Pepcid] 20 mg PO BID PRN #30 tablet 12/24/17 Unknown Rx Ondansetron [Zofran Odt] 4 mg PO Q8H PRN #10 tab.rapdis 12/24/17 Unknown Rx Doxycycline [Vibramycin CAP] 100 mg PO Q12HR #14 capsule 07/05/18 Unknown Rx Fluconazole [Diflucan] 150 mg PO ONCE #1 tablet 07/05/18 Unknown Rx metroNIDAZOLE [Flagyl] 500 mg PO Q12HR #14 tab 07/05/18 Unknown Rx traMADol [Ultram] 50 mg PO Q6HR PRN #20 tablet 07/23/18 Unknown Rx ED Physical Exam - General Limitations: No Limitations General appearance: alert, other (awake; comfortable; ) - Head Head exam: Present: atraumatic, normocephalic - Eye Eye exam: Present: normal appearance - ENT ENT exam: Present: mucous membranes moist - Neck Neck exam: Present: normal inspection - Respiratory Respiratory exam: Present: normal lung sounds bilaterally. Absent: respiratory distress - Cardiovascular Cardiovascular Exam: Present: regular rate, normal rhythm. Absent: systolic murmur, diastolic murmur, rubs, gallop - GI/Abdominal GI/Abdominal exam: Present: soft, tenderness (suprapubic region), normal bowel sounds - Extremities Exam Extremities exam: Present: normal inspection - Back Exam Back exam: Present: normal inspection - Neurological Exam Neurological exam: Present: alert, oriented X3 - Psychiatric Psychiatric exam: Present: normal affect, normal mood - Skin Skin exam: Present: warm, dry, intact, normal color. Absent: rash ED Course Vital Signs 07/22/18 07/22/18 07/22/18 23:11 23:40 23:50 Temperature 98.0 F 98 F Pulse Rate 57 L 55 L Respiratory 18 18 18 Rate Blood Pressure 112/48 112/48 Blood Pressure [Right] O2 Sat by Pulse 98 98 Oximetry 07/23/18 07/23/18 07/23/18 00:50 10:00 10:05 Temperature Pulse Rate 60 Respiratory 18 16 16 Rate Blood Pressure Blood Pressure 111/66 [Right] O2 Sat by Pulse 98 98 Oximetry 07/23/18 11:06 Temperature Pulse Rate Respiratory 16 Rate Blood Pressure Blood Pressure [Right] O2 Sat by Pulse Oximetry - Consultations Consultation #1: 07/23/18 13:00Dr. Huber with OB was consulted and states that if ultrasound does not show any evidence of perforation which he did not that patient can follow up with him in clinic today. Patient made aware of this. ED Medical Decision Making - Lab Data Result diagrams: 07/23/18 00:00 07/23/18 00:00 - Medical Decision Making Patient's pain has improved with morphine therapy. Patient's ultrasound shows no evidence of perforation of the uterus. Patient's malpositioned IUD appears the same as previously. Patient to be discharged to follow-up with Dr. Jassi Huber in clinic this afternoon. She will be prescribed Ultram therapy upon discharge. - Differential Diagnosis Perforation; Fibroids; Anemia; Dehydration Critical care attestation.: If time is entered above; I have spent that time in minutes in the direct care of this critically ill patient, excluding procedure time. ED Disposition Clinical Impression: Pelvic pain, Malpositioned IUD Disposition: TO HOME OR SELFCARE Is pt being admited?: No Condition: Fair Instructions: Abdominal Pain (ED), Chronic Pelvic Pain in Women (ED) Prescriptions: traMADol [Ultram] 50 mg PO Q6HR PRN #20 tablet PRN Reason: Pain Referrals: PRIMARY CARE, [Primary Care Provider] - 3-5 Days Time of Disposition: 13:05
[2018-07-23] MEDS ORDERED: ZOFRAN IV ONE (10:38)
[2018-07-23] MEDS ORDERED: NACL 0.9% 1000 ML 1,000 ML IV ONE (10:38)
[2018-07-23] MEDS ORDERED: MORPHINE IV ONE (10:38)
--- NOTE | 2018-07-23 12:38 | Ultrasound Report ---
ULTRASOUND PELVIC COMPLETE ULTRASOUND TRANSVAGINAL HISTORY: Pelvic pain, malpositioned IUD. COMPARISON: 07/05/18. TECHNIQUE: Transabdominal and transvaginal ultrasound with color doppler interrogation. FINDINGS: Uterus: 11 x 5 x 6 cm. No uterine fibroid disease is identified. Endometrium: 8 mm. The malpositioned IUD appears unchanged in position since 07/05/18. Right ovary: 3.1 x 2.1 x 2.9 cm. No focal abnormality. Left ovary: 3.1 x 1.8 x 3.1 cm. No focal abnormality. There is mild increase in free pelvic fluid since the previous exam which is of uncertain clinical significance. IMPRESSION: No appreciable change in the malpositioned IUD. Mild increase in pelvic fluid since the previous exam.
[2018-07-23 13:01] VITALS: BP 114/72
== END 2018-07-23 14:02 | disposition home or self-care (01) ==
LOC: ED 22:57
DX: T83.32XA Displacement of intrauterine contraceptive device, initial encounter (principal); R10.30 Lower abdominal pain, unspecified; N93.9 Abnormal uterine and vaginal bleeding, unspecified; G43.909 Migraine, unspecified, not intractable, without status migrainosus
CPT/HCPCS: 36415; 76830; 76856; 80053; 81001; 84702; 84703; 85025; 96374; 96375; 99284; J2270; J2405; J7030; 96361

== ENCOUNTER 2018-07-31 07:49 | Day surgery (SDC) | payer OTHER ==
[2018-07-31] MEDS ORDERED: XYLOCAINE MPF 2% ONE (08:40)
[2018-07-31] MEDS ORDERED: DILAUDID ONE (08:40)
[2018-07-31] MEDS ORDERED: DIPRIVAN 10 MG/ML IV ONE (08:40)
--- NOTE | 2018-07-31 09:17 | Short Stay Summary ---
Short Stay Documentation Date of service: 07/31/18 Narrative H&P: Patient is a 32 year-old black female LMP 05/11/18 presents for IUD removal. Pelvic ultrasound showed an embedded IUD within the endometrial wall. She now presents for hysteroscopic retrieval of retained IUD. - History Principal diagnosis: Retained IUD H&P: obtained from office Past Medical History: No medical history Past Surgical History: (x4) Social history: no significant social history, single - Allergies and Medications Current Medications: Allergies No Known Allergies Allergy (Verified 07/25/18 15:19) Home Medications Medication Instructions Recorded Confirmed Last Taken Type No Known Home Medications [No 07/25/18 07/25/18 Unknown History Reported Home Medications] - Physical exam General appearance: no acute distress Integumentary: no rash HEENT: Atraumatic Lungs: Clear to auscultation Breasts: deferred Heart: Regular rate Female Genitourinary: deferred Rectal Exam: deferred Extremities: no ischemia Neurological: Normal gait, Normal speech - Brief post op/procedure progress note Date of procedure: 07/31/18 Pre-op diagnosis: Displaced IUD Post-op diagnosis: same Procedure: Hysteroscopic retrieval of displaced IUD Anesthesia: MAC Findings: Normal uterus with normal endometrial cavity. IUD visualized and retrieved within the endometrial cavity Surgeon: RENATE NOVAK Estimated blood loss: none Pathology: list (IUD) Specimen disposition: to lab Condition: stable - Hospital course Hospital course: Unremarkable. - Disposition Condition at discharge: Good Disposition: DC-01 TO HOME OR SELFCARE - Discharge Diagnoses (1) Malpositioned IUD Status: Resolved Qualifiers: Encounter type: subsequent encounter Qualified Code(s): T83.32XD - Displacement of intrauterine contraceptive device, subsequent encounter Short Stay Discharge Plan Activity: no restrictions Diet: regular Follow up with: PRIMARY CAREMD [Primary Care Provider] - 7 Days RENATE NOVAK MD [Staff Physician] - 14 Days Prescriptions: Ibuprofen [Motrin] 800 mg PO Q8HR PRN #20 tablet PRN Reason: Pain, Moderate (4-6)
--- NOTE | 2018-07-31 09:20 | Anesthesia Day of Surgery ---
Anesthesia Day of Surgery - Day of Surgery Patient Examined: Yes Patient H&P Reviewed: Yes Patient is NPO: Yes
--- NOTE | 2018-07-31 09:20 | Anesthesia Consultation ---
Anesthesia Consult and Med Hx Date of service: 07/31/18 - Airway Anesthetic Teeth Evaluation: Good ROM Head & Neck: Adequate Mental/Hyoid Distance: Adequate Mallampati Class: Class II Intubation Access Assessment: Good - Pulmonary Exam CTA: Yes - Cardiac Exam Cardiac Exam: No Murmur - Pre-Operative Health Status ASA Pre-Surgery Classification: ASA1 Proposed Anesthetic Plan: General - Central Nervous System Hx Psychiatric Problems: No - Other Systems Hx Cancer: No
[2018-07-31] MEDS ORDERED: DILAUDID IV PRN (09:21)
[2018-07-31] MEDS ORDERED: SILVER NITRATE TP ONE (09:25)
[2018-07-31] MEDS ORDERED: LACTATED RINGERS 1,000 ML IV SCH (10:00)
[2018-07-31] MEDS ORDERED: ANCEF/STERILE WATER 2 GM/20 ML 2 GM/20 ML SYRINGE IV NR (10:00)
[2018-07-31] MEDS ORDERED: VERSED IV NR (10:00)
[2018-07-31] MEDS ORDERED: PEPCID PO NR (10:00)
[2018-07-31] MEDS ORDERED: ZOFRAN ONE (10:14)
[2018-07-31] MEDS ORDERED: DECADRON ONE (10:14)
[2018-07-31] MEDS ORDERED: NACL 0.9% IR ONE (10:15)
[2018-07-31] MEDS ORDERED: TORADOL ONE (10:20)
--- NOTE | 2018-07-31 10:39 | Operative Report ---
Operative Report Operative Report: Date of procedure: 07/31/2018 Pre-operative diagnosis: Malpositioned IUD Post-operative diagnosis: Same Procedure name(s): Hysteroscopic retrieval of malpositioned IUD Surgeon: Jassi Huber MD Powder Shoveler: None Anesthesia: Gen. mask EBL: None Findings: Normal uterus with normal uterine cavity showing malpositioned IUD which was easily retrieved. Procedure: After the patient was correctly identified, she was prepped and draped in the usual sterile fashion and placed in the dorsal lithotomy position. The bladder was first emptied using a straight catheter. The speculum was then placed in the vaginal vault and the anterior lip of the cervix was grasped using a single-tooth tenaculum. The cervix was sequentially dilated, and the hysteroscope was placed into the cervical canal show in the malpositioned IUD which was grasped using a grasper and easily retrieved and sent to pathology. At this point the procedure was considered complete. The patient tolerated the procedure well and was transferred to recovery room in stable condition.
--- NOTE | 2018-07-31 11:19 | Post Anesthesia Evaluation ---
- Post Anesthesia Evaluation Patient Participated: Yes Airway Patent: Yes Stable Respiratory Function: Yes Nausea/Vomiting: No Temp > 96.8F: Yes Pain Manageable: Yes Adequeate Hydration: Yes Anesthesia Complications: No
[2018-07-31 12:04] VITALS: BP 122/87
== END 2018-07-31 12:15 | disposition home or self-care (01) ==
LOC: OR 07:49
PROVIDERS: ATTEND Obstetrics & Gynecology
DX: T83.32XA Displacement of intrauterine contraceptive device, initial encounter (principal); Z79.899 Other long term (current) drug therapy; Z98.891 History of uterine scar from previous surgery; Z62.810 Personal history of physical and sexual abuse in childhood; Z98.890 Other specified postprocedural states; Y83.1 Surgical operation with implant of artificial internal device as the cause of abnormal reaction of the patient, or of later complication, without mention of misadventure at the time of the procedure
CPT/HCPCS: 58562; 81025; 88302; A4217; J0690; J1100; J1170; J1885; J2250; J2405; J2704; J7120